=== PATIENT | male | born 1940 | race Caucasian/White ===

== ENCOUNTER 2017-01-14 06:57 | Day surgery (SDC) | payer OTHER ==
[2017-01-14] MEDS: D5 LR 1000 ML 1,000 ML IV ONE ×3 (07:20→07:38)
[2017-01-14] MEDS ORDERED: XYLOCAINE 2 % (PLAIN) ONE (08:43)
[2017-01-14] MEDS ORDERED: DIPRIVAN VIAL 20 ML ONE (08:43)
[2017-01-14 09:27] VITALS: BP 115/76
== END 2017-01-14 09:29 | disposition home or self-care (01) ==
LOC: SURG1 06:57
PROVIDERS: ATTEND Internal Medicine Gastroenterology
PROC: 0DBP8ZX Excision of Rectum, Via Natural or Artificial Opening Endoscopic, Diagnostic (ICD-10-PCS; principal; 2017-01-14 08:30)
PROC: 0DJD8ZZ Inspection of Lower Intestinal Tract, Via Natural or Artificial Opening Endoscopic (ICD-10-PCS; principal; 2017-01-14 08:30)
DX: Z12.11 Encounter for screening for malignant neoplasm of colon (principal); K57.30 Diverticulosis of large intestine without perforation or abscess without bleeding; K63.5 Polyp of colon; K64.8 Other hemorrhoids
CPT/HCPCS: A4217; J2001; J3490; J7120